=== PATIENT | male | born 1945 | race Caucasian/White ===

== ENCOUNTER 2016-09-16 13:43 | Emergency (ER) | payer OTHER ==
[2016-09-16 13:58] VITALS: BP 134/80; PULSE 71; TEMP 98; BMI 25.5
[2016-09-16] MEDS ORDERED: KETOROLAC TROMETHAMINE 60 MG/2 ML VIAL IM ONE (14:45)
--- NOTE | 2016-09-16 14:52 | PDOC ---
History of Present Illness - General Chief Complaint: Back Pain Stated Complaint: LOWER BACK PAIN, RECTAL BLEED Time Seen by Provider: 09/16/16 14:20 - History of Present Illness Initial Comments: 09/16/16 14:48 CHIEF COMPLAINT: back pain HISTORY OF PRESENT ILLNESS: 71 yo M with hx of HTN [facility] [place] with back pain x 2 months. Patient reports that he does a lot of work in construction and still goes to the gym "every day because I've been doing it my whole life." He denies any loss of sensation to legs or loss of bowel or bladder function. He reports that the pain is in the lower part of his back "close to the bottom" and radiates down his right leg. No recent travel or sick contacts. PAST MEDICAL HISTORY: Denies past medical history FAMILY HISTORY: Denies SOCIAL HISTORY: Denies tobacco, alcohol, illicit drug use. SURGICAL HISTORY: Denies ALLERGIES: No known drug allergies REVIEW OF SYSTEMS General/Constitutional: Denies fever or chills. Denies weakness, weight change. HEENT: Denies change in vision. Denies ear pain or discharge. Denies sore throat. Cardiovascular: Denies chest pain or shortness of breath. Respiratory: Denies cough, wheezing, or hemoptysis. Gastrointestinal: Denies nausea, vomiting, diarrhea or constipation. Denies rectal bleeding. Genitourinary: Denies dysuria, frequency, or change in urination. Musculoskeletal: Denies joint or muscle swelling or pain. Denies neck or back pain. Skin and breasts: Denies rash or easy bruising. Neurologic: Denies loss of sensation. Denies headache, vertigo, loss of consciousness, or loss of sensation. PHYSICAL EXAM General Appearance: Well-appearing, appropriately dressed. No apparent distress , no intoxication. HEENT: EOMI, PERRLA, normal ENT inspection, normal voice, TMs normal, pharynx normal. No conjunctival pallor. No photophobia, scleral icterus. Neck: Supple. Trachea midline. No tenderness, rigidity, carotid bruit, stridor , lymphadenopathy, or thyromegaly. Respiratory/Chest: Lungs CTAB. Cardiovascular: RRR. S1, S2. No JVD, murmur, bradycardia, tachycardia. Vascular Pulses: Dorsalis-Pedis (R): 2+, Dorsalis-Pedis (L): 2+ Gastrointestinal/Abdominal: Normal bowel sounds. Abdomen soft, non-distended. No tenderness or rebound tenderness. No organomegaly, pulsatile mass, guarding , hernia, hepatomegaly, splenomegaly. Lymphatic: No adenopathy, tenderness. Musculoskeletal/Extremities: Bilateral pain to lumbar spine. No loss of sensation to extremities, no loss of bowel or bladder function. Normal inspection. FROM of all extremities, normal capillary refill. Pelvis Stable. No CVA tenderness. No tenderness to extremities, pedal edema, swelling, erythema or deformity. Integumentary: Appropriate color, dry, warm. No cyanosis, erythema, jaundice or rash Neurologic: bacteriologist food II-XII intact. Fully oriented, alert. Appropriate mood/affect. Motor strength 5/5. No appreciable EOM palsy, facial droop or sensory deficit. 09/16/16 14:54 Past History - Past Medical History Allergies/Adverse Reactions: Allergies Allergy/AdvReac Type Severity Reaction Status Date / Time No Known Allergies Allergy Verified 09/16/16 13:52 Home Medications: Ambulatory Orders Cyclobenzaprine HCl 7.5 mg PO HS PRN #4 tablet 09/16/16 Naproxen 250 mg PO BID #10 tablet 09/16/16 Olmesartan/Hydrochlorothiazide [Benicar Hct 20-12.5MG Tab] 1 tab PO DAILY Simvastatin 10 mg PO 09/16/16 HTN: Yes Hypercholesterolemia: Yes - Psycho/Social/Smoking Cessation Hx Anxiety: No Suicidal Ideation: No Smoking History: Never smoked Have you smoked in the past 12 months: No Information on smoking cessation initiated: No Hx Alcohol Use: No Drug/Substance Use Hx: No Substance Use Type: None *Physical Exam - Vital Signs Last Vital Signs Temp Pulse Resp BP Pulse Ox 98.0 F 71 18 134/80 100 09/16/16 13:55 09/16/16 13:55 09/16/16 13:55 09/16/16 13:55 09/16/16 13:55 Medical Decision Making - Medical Decision Making 09/16/16 14:56 71 yo M with hx of HTN presents to [facility] [place] with back pain x 2 months. -30 mg IM Toradol Will rx naproxen and cyclobenzaprine with close f/u with ortho. Advised patient to take medication as prescribed and f/u with ortho by the end of the week. Patient and verbalized understanding and agree to plan. *DC/Admit/Observation/Transfer Diagnosis at time of Disposition: Sacral back pain - Discharge Dispostion Disposition: HOME Condition at time of disposition: Stable Admit: No - Prescriptions Prescriptions: Cyclobenzaprine HCl 7.5 mg PO HS PRN #4 tablet PRN Reason: Back Pain Naproxen 250 mg PO BID #10 tablet - Referrals Referrals: Jesus Sim MD [Primary Care Provider] - Moi Downing MD [Staff Physician] - - Patient Instructions Printed Discharge Instructions: DI for Low Back Pain Additional Instructions: Please take medication as prescribed; as discussed do not drive or operate machinery while taking cyclobenzaprine. Please follow up with orthopedics by the end of the week for a possible MRI and/or physical therapy. If you experience any numbness, loss of sensation, or tingling to your legs, or you develop any loss of bowel or bladder function, or you develop any new or worsening symptoms, please return to the ER.
[2016-09-16] MEDS ORDERED: KETOROLAC TROMETHAMINE 30 MG/1 ML VIAL ONE (15:18)
== END 2016-09-16 15:24 | disposition home or self-care (01) ==
LOC: JER 13:43 → JERFT 13:43
DX: M54.5 Low back pain (principal); I10 Essential (primary) hypertension; E78.00 Pure hypercholesterolemia, unspecified
CPT/HCPCS: 99281-25

== ENCOUNTER 2018-02-12 16:04 | Emergency (ER) | payer OTHER ==
[2018-02-12 16:16] VITALS: BP 118/69; PULSE 73; TEMP 98; BMI 25.8
--- NOTE | 2018-02-12 16:16 | PDOC ---
Rapid Medical Evaluation Chief Complaint: Back Pain Time Seen by Provider: 02/12/18 16:12 Medical Evaluation: Allergies Allergy/AdvReac Type Severity Reaction Status Date / Time No Known Allergies Allergy Verified 09/16/16 13:52 02/12/18 16:15 I have performed a brief in person evaluation of this patient. The patient presents with a CC of: back pain PE: Skin: clear Lungs: Clear Heart: RRR Abd: No pain upon palpation MS: Moves all extremities without difficulty. Pt has pain upon palpation to the muscles adjacent to the lumbar spine. 5/5 strength in LE groups. Psych: Age appropriate. The patient will proceed to [facility] for further evaluation. Discharge Disposition - Diagnosis Back pain Qualifiers: Back pain location: low back pain Chronicity: acute Back pain laterality: right Sciatica presence: with sciatica Sciatica laterality: sciatica of right side Qualified Code(s): M54.41 - Lumbago with sciatica, right side - Referrals Referrals: Jesus Sim MD [Primary Care Provider] - - Patient Instructions - Post Discharge Activity
[2018-02-12] MEDS ORDERED: KETOROLAC TROMETHAMINE 30 MG/1 ML VIAL IM ONE (16:53)
[2018-02-12] MEDS ORDERED: KETOROLAC TROMETHAMINE 30 MG/1 ML VIAL ONE (16:56)
--- NOTE | 2018-02-12 17:00 | PDOC ---
History of Present Illness - General Chief Complaint: Back Pain Stated Complaint: BACK/RT LEG PAIN Time Seen by Provider: 02/12/18 16:12 History Source: Patient Exam Limitations: No Limitations - History of Present Illness Initial Comments: 02/12/18 16:54 72 yr male with history of low back pain radiates down right leg for 2 days no abd pain no urinary discomfort or dysfunction. Pt did not take any meds [employer]. Pt has had in the past sciatica, feels the same today. no fever no chills no recent URI. Pt is ambulating with limp. Severity: reports: mild Pain Location: reports: back Past History - Past Medical History Allergies/Adverse Reactions: Allergies Allergy/AdvReac Type Severity Reaction Status Date / Time No Known Allergies Allergy Verified 09/16/16 13:52 Home Medications: Ambulatory Orders Olmesartan/Hydrochlorothiazide [Benicar Hct 20-12.5MG Tab] 1 tab PO DAILY Simvastatin 10 mg PO 09/16/16 Cyclobenzaprine HCl [Flexeril 10 mg] 10 mg PO TID PRN #21 tablet 02/12/18 Naproxen [Naprosyn -] 500 mg PO BID #14 tablet 02/12/18 COPD: No HTN: Yes Hypercholesterolemia: Yes Other medical history: low back pain - Immunization History Immunization Up to Date: No - Suicide/Smoking/Psychosocial Hx Smoking History: Never smoked Have you smoked in the past 12 months: No Information on smoking cessation initiated: No Hx Alcohol Use: No Drug/Substance Use Hx: No Substance Use Type: None Trauma Specific PMHX - Complaint Specific PMHX Arthritis: No Back Injury: No Neck Injury: No Hx Sacro Iliac Joint Dysfunction: No Review of Systems - Review of Systems Able to Perform ROS?: Yes Is the patient limited Hungarian proficient: No Constitutional: No: Symptoms Reported HEENTM: No: Symptoms Reported Respiratory: No: Symptoms reported Cardiac (ROS): No: Symptoms Reported ABD/GI: No: Symptoms Reported : No: Symptoms Reported Musculoskeletal: Yes: Symptoms Reported, Back Pain *Physical Exam - Vital Signs Last Vital Signs Temp Pulse Resp BP Pulse Ox 98.0 F 73 16 118/69 100 02/12/18 16:13 02/12/18 16:13 02/12/18 16:13 02/12/18 16:13 02/12/18 16:13 - Physical Exam General Appearance: Yes: Nourished, Appropriately Dressed HEENT: positive: EOMI, DEWAYNE, TMs Normal, Pharynx Normal Neck: positive: Supple Respiratory/Chest: positive: Lungs Clear, Normal Breath Sounds Cardiovascular: positive: Regular Rhythm, Regular Rate Lymphatic: negative: Adenopathy Musculoskeletal: positive: Normal Inspection, Other (ttp right lower paraspinal soft tissue to buttock, neg hip pain or tenderness). negative: CVA Tenderness, CVA Tenderness (R), CVA Tenderness (L), Muscle Spasm, Vertebral Tenderness Extremity: positive: Normal Capillary Refill, Normal Inspection, Normal Range of Motion, Other (SLR right side positive at 45 degrees ) Integumentary: positive: Normal Color, Dry, Warm Neurologic: positive: Fully Oriented, Alert, Normal Mood/Affect, Normal Response , Motor Strength 5/5 ED Treatment Course - RADIOLOGY Radiology Studies Ordered: Category Date Time Status SPINE-LUMBAR SACRAL [RAD] Stat Radiology 02/12/18 16:53 Ordered Medical Decision Making - Medical Decision Making 02/12/18 17:01 cc: low back pain radiates to the right leg no abd pain neg saddle anesthesia neg numbness or tingling , neg urinary symptoms spine xray and toradol pt has apt tomorrow with , told him to come to ER and get xray pt and his agree with the plan of care 02/12/18 17:38 pt states he feels better after the toradol, ambulating freely steady gait. *DC/Admit/Observation/Transfer Diagnosis at time of Disposition: Back pain Qualifiers: Back pain location: low back pain Chronicity: acute Back pain laterality: right Sciatica presence: with sciatica Sciatica laterality: sciatica of right side Qualified Code(s): M54.41 - Lumbago with sciatica, right side Sciatica Qualifiers: Laterality: right Qualified Code(s): M54.31 - Sciatica, right side - Discharge Dispostion Disposition: HOME Condition at time of disposition: Improved - Prescriptions Prescriptions: Cyclobenzaprine HCl [Flexeril 10 mg] 10 mg PO TID PRN #21 tablet PRN Reason: Muscle Spasms Naproxen [Naprosyn -] 500 mg PO BID #14 tablet - Referrals Referrals: Schirripa,Jesus, MD [Primary Care Provider] - - Patient Instructions Additional Instructions: take the medication as prescribed, you can take the flexeril (muscle relaxant) when you get home before bed apply heating pad or warm compresses to the lower back on the right side avoid any heavy lifting or bending follow with tomorrow as planned Return to ER for any worsening pain or concerning symptoms, unable to walk, unable to hold urine or bowel in , severe pain - Post Discharge Activity
== END 2018-02-12 17:43 | disposition home or self-care (01) ==
LOC: JERFT 16:04
PROC: 3E0233Z Introduction of Anti-inflammatory into Muscle, Percutaneous Approach (ICD-10-PCS; principal; 2018-02-12)
DX: M54.41 Lumbago with sciatica, right side (principal); I10 Essential (primary) hypertension; E78.00 Pure hypercholesterolemia, unspecified
CPT/HCPCS: 72100-TC-FY; 99281-25

== ENCOUNTER 2018-10-08 14:27 | Emergency (ER) | payer OTHER ==
[2018-10-08 14:43] VITALS: TEMP 98.4; BMI 25.8
[2018-10-08] MEDS ORDERED: MECLIZINE HCL 25 MG TABLET (FP) PO ONE (15:00)
[2018-10-08] MEDS ORDERED: SODIUM CHLORIDE 1,000 ML IV STA (15:00)
[2018-10-08] MEDS ORDERED: MECLIZINE HCL 25 MG TABLET (FP) ONE (15:03)
[2018-10-08 15:31] LABS: BASO % 0.4 % (0-2.0); EOS % 1.2 % (0-4.5); HEMATOCRIT 42.8 % (35.4-49); HEMOGLOBIN 14.3 GM/dl (11.7-16.9); LYMPH % 26.1 % (8-40); MCH 31.5 pg (25.7-33.7); MCHC 33.4 g/dl (32.0-35.9); MEAN CELL VOLUME 94.3 fl (80-96); MEAN PLT VOLUME 8.5 fl (7.5-11.1); MONO % 7.5 % (3.8-10.2); NEUT % 64.8 % (42.8-82.8); PLATELET COUNT 253 K/MM3 (134-434); RBC 4.54 M/mm3 (4.00-5.60); RDW 12.3 % (11.9-15.9); WHITE BLOOD COUNT 6.8 K/mm3 (4.0-10.8)
[2018-10-08 15:39] LABS: ALBUMIN 4.3 g/dl (3.4-5.0); BILIRUBIN,TOTAL 0.8 mg/dl (0.2-1); CALCIUM 9.7 mg/dl (8.5-10); CREATININE 1.2 mg/dl (0.55-1.3); TOT PROT 7.5 g/dl (6.4-8.2)
[2018-10-08 16:57] VITALS: BP 142/80; PULSE 76
--- NOTE | 2018-10-08 16:58 | PDOC ---
Documentation entered by Monika Jimenez SCRIBE, acting as scribe for Wally Khoury MD. Wally Khoury MD: This documentation has been prepared by the Tony white Collisia, SCRIBE, under my direction and personally reviewed by me in its entirety. I confirm that the documentation accurately reflects all work, treatment, procedures, and medical decision making performed by me. History of Present Illness - General Chief Complaint: Lightheaded Stated Complaint: DIZZY History Source: Patient Exam Limitations: No Limitations - History of Present Illness Initial Comments: 10/08/18 15:52 The patient is a 73 year old male with a significant past medical history of hypertension and hypercholesterolemia who presents to the emergency department with episodes of vertigo for 1 week. The patient reports that he was in [place] last week with his onset of symptoms. He describes his symptoms as if the room is spinning. The patient states that he went to the ED on vacation and was prescribed meclizine by which he finished 3 days ago. The patient states that the medication helped his symptoms slightly but he still feels dizzy. The patient states that he followed up with his Doctor (Dr. Lomax) by which he was advised to come to the ED for a head CT for further evaluation. The patient denies any fever, chills, nausea, vomiting, diarrhea, constipation or urinary symptoms. The patient denies any chest pain, shortness of breath, headache. He denies any other complaints. NIH Stroke Scale - Last Known Well Date/Time & Onset Date Last Known Well: 10/01/18 - Initial Evaluation Level of consciousness: Alert Ask patient the month and their age: Answers both correctly Ask patient to open & close eyes; make fist and let go: Obeys both correctly Best gaze (horizontal eye movement): Normal Visual field testing: No visual field loss Facial paresis (Show teeth/raise eyebrows/close eyes tight): Normal symmetrical movement Motor Function: Left Arm: Normal Motor Function: Right Arm: Normal (extends arm 90 (or 45) degrees for 10 seconds without drift Motor Function: Left Leg: Normal (extends leg 30 degrees for 5 seconds without drift) Motor Function: Right Leg: Normal (extends leg 30 degrees for 5 seconds without drift) Limb Ataxia: No ataxia Sensory(Use pinprick test arms,legs,trunk,face/side to side): Normal Best language (Describe picture, name items, read sentences): No Aphasia Dysarthria (read several words): Normal articulation Extinction and Inattention: No abnormality - Total Score NIH Stroke Scale Score: 0 Past History - Past Medical History Allergies/Adverse Reactions: Allergies Allergy/AdvReac Type Severity Reaction Status Date / Time No Known Allergies Allergy Verified 10/08/18 14:29 Home Medications: Ambulatory Orders Olmesartan/Hydrochlorothiazide [Benicar Hct 20-12.5MG Tab] 1 tab PO DAILY Meclizine HCl 25 mg PO Q6H PRN #15 tablet 10/08/18 Meclizine HCl [Antivert -] 25 mg PO TID PRN 10/08/18 COPD: No HTN: Yes Hypercholesterolemia: Yes - Immunization History Immunization Up to Date: No - Suicide/Smoking/Psychosocial Hx Smoking History: Never smoked Have you smoked in the past 12 months: No Hx Alcohol Use: No Drug/Substance Use Hx: No Substance Use Type: None Review of Systems - Review of Systems Able to Perform ROS?: Yes Comments:: 10/08/18 15:52 GENERAL/CONSTITUTIONAL: No fever or chills. No weakness. HEAD, EYES, EARS, NOSE AND THROAT: No change in vision. No ear pain or discharge. No sore throat. CARDIOVASCULAR: No chest pain or shortness of breath. RESPIRATORY: No cough, wheezing, or hemoptysis. GASTROINTESTINAL: No nausea, vomiting, diarrhea or constipation. GENITOURINARY: No dysuria, frequency, or change in urination. MUSCULOSKELETAL: No joint or muscle swelling or pain. No neck or back pain. SKIN: No rash NEUROLOGIC: (+)vertigo.No headache, loss of consciousness, or change in strength /sensation. ENDOCRINE: No increased thirst. No abnormal weight change. HEMATOLOGIC/LYMPHATIC: No anemia, easy bleeding, or history of blood clots. ALLERGIC/IMMUNOLOGIC: No hives or skin allergy. *Physical Exam - Vital Signs Last Vital Signs Temp Pulse Resp BP Pulse Ox 98.4 F 79 16 138/83 98 10/08/18 14:29 10/08/18 14:29 10/08/18 14:29 10/08/18 14:29 10/08/18 14:29 - Physical Exam Comments: 10/08/18 15:52 GENERAL: Awake, alert, and fully oriented, in no acute distress HEAD: No signs of trauma EYES: PERRLA, EOMI, sclera anicteric, conjunctiva clear ENT: Auricles normal inspection, hearing grossly normal, nares patent, oropharynx clear without exudates. Moist mucosa NECK: Normal ROM, supple, no lymphadenopathy, JVD, or masses LUNGS: Breath sounds equal, clear to auscultation bilaterally. No wheezes, and no crackles HEART: Regular rate and rhythm, normal S1 and S2, no murmurs, rubs or gallops ABDOMEN: Soft, nontender, normoactive bowel sounds. No guarding, no rebound. No masses EXTREMITIES: Normal range of motion, no edema. No clubbing or cyanosis. No cords, erythema, or tenderness NEUROLOGICAL: (+) [id number] maneuver on the right. Cranial nerves II through XII intact. Normal speech, normal gait. Rapid alternate normal. Heel to jefferson normal. 5/5 strength in upper and lower extremity. SKIN: Warm, Dry, normal turgor, no rashes or lesions noted. Heart Score/ECG Review #1 ECG reviewed & interpreted by me at: 15:30 10/08/18 15:26 NSR 65, no std/troy, T wave flat III, nonspecific intraventricular conduction delay, QRS 118 msec, QTC 424 msec ED Treatment Course - LABORATORY CBC & Chemistry Diagram: 10/08/18 15:10 10/08/18 15:10 - RADIOLOGY Radiology Studies Ordered: Category Date Time Status HEAD CT WITHOUT CONTRAST [CT] Stat CT Scan 10/08/18 15:00 Ordered - Medications Given in the ED: ED Medications Discontinued Medications Generic Name Dose Route Start Last Admin Trade Name Freq PRN Reason Stop Dose Admin Meclizine HCl 50 mg 10/08/18 15:00 10/08/18 15:05 Antivert - PO 10/08/18 15:01 50 mg ONCE ONE Administration Medical Decision Making - Medical Decision Making 10/08/18 15:28 A portion of this note was documented by scribe services under my direction. I have reviewed the details of the note, within reason, and agree with the documentation with the following case summary and management plan written by me. Patient treated in the ED. Nursing notes are reviewed and incorporated into the medical decision-making. Vital signs reviewed. Peripheral IV access obtained by the nurse, laboratory studies are drawn and sent, reviewed and interpreted by myself. Vital Signs Temp Pulse Resp BP Pulse Ox 98.4 F 79 16 138/83 98 10/08/18 14:29 10/08/18 14:29 10/08/18 14:29 10/08/18 14:29 10/08/18 14:29 73-year-old male with past medical history of hypertension, hyperlipidemia presents with vertigo. Last week, the patient was occasioning in [place] when he felt a sudden onset of vertigo. The patient is in the emergency department at that time was diagnosed with peripheral vertigo given a prescription 10/08/18 16:53 CBC, BMP 10/08/18 15:10 10/08/18 15:10 CMP Sodium 136 mmol/L (136-145) 10/08/18 15:10 Potassium 4.0 mmol/L (3.5-5.1) 10/08/18 15:10 Chloride 102 mmol/L (98-107) 10/08/18 15:10 Carbon Dioxide 26 mmol/L (21-32) 10/08/18 15:10 Anion Gap 8 MMOL/L (8-16) 10/08/18 15:10 BUN 24.0 mg/dl (7-18) H 10/08/18 15:10 Creatinine 1.2 mg/dl (0.55-1.3) 10/08/18 15:10 Est GFR (CKD-EPI)AfAm 68.15 10/08/18 15:10 Est GFR (CKD-EPI)NonAf 58.80 10/08/18 15:10 Random Glucose 160 mg/dl (74-106) H 10/08/18 15:10 Calcium 9.7 mg/dl (8.5-10) 10/08/18 15:10 Total Bilirubin 0.8 mg/dl (0.2-1) 10/08/18 15:10 AST 36 U/L (15-37) 10/08/18 15:10 ALT 44 U/L (13-61) 10/08/18 15:10 Alkaline Phosphatase 54 U/L (45-117) 10/08/18 15:10 Troponin I < 0.03 ng/ml (0.00-0.05) 10/08/18 15:10 Total Protein 7.5 g/dl (6.4-8.2) 10/08/18 15:10 Albumin 4.3 g/dl (3.4-5.0) 10/08/18 15:[address] reviewed. No acute findings. The patient reports feeling completely better without symptoms. I suspect the patient likely has peripheral vertigo. I advised the patient that head CT is negative though if he continues to have persistence of symptoms for next several days that he should speak to his doctor regards for potential MRI of the brain. At this time, which the patient feels well at this time. The patient' s will bring the patient home. Return precautions given. Patient verbalizes understanding agrees with plan. I discussed the physical exam findings, ancillary test results and final diagnoses with the patient. I answered all of the patient's questions. The patient was satisfied with the care received and felt comfortable with the discharge plan and treatment plan. The patient will call their primary care physician within 24 hours to arrange follow-up and will return to the Emergency Department with any new, persistant or worsening symptoms. *DC/Admit/Observation/Transfer Diagnosis at time of Disposition: Peripheral vertigo Qualifiers: Laterality: right Qualified Code(s): H81.391 - Other peripheral vertigo, right ear - Discharge Dispostion Disposition: HOME Condition at time of disposition: Good Decision to Admit order: No - Prescriptions Prescriptions: Meclizine HCl 25 mg PO Q6H PRN #15 tablet PRN Reason: Vertigo - Referrals Referrals: Jesus Sim MD [Primary Care Provider] - - Patient Instructions Printed Discharge Instructions: DI for Benign Paroxysmal Positional Vertigo Additional Instructions: The CAT scan the head and the blood work was unremarkable. However, I suspect that this was peripheral vertigo. Please check plenty of fluids. If dizziness occurs, take one tablet of meclizine every 6 hours as needed. If he noticed in the next several days that she have persistence of dizziness despite taking medications, you may possibly need an MRI of the brain. Please contact your doctor and make a follow-up appointment or return to the ER. - Post Discharge Activity
--- NOTE | 2018-10-09 11:26 | EKG ---
Test Reason : Blood Pressure : / mmHG Vent. Rate : 065 BPM Atrial Rate : 065 BPM P-R Int : 164 ms QRS Dur : 118 ms QT Int : 408 ms P-R-T Axes : 054 -09 022 degrees QTc Int : 424 ms NORMAL SINUS RHYTHM NON-SPECIFIC INTRA-VENTRICULAR CONDUCTION DELAY WHEN COMPARED WITH ECG OF 29-APR-2008 17:38, NO SIGNIFICANT CHANGE WAS FOUND Confirmed by CARLEY JORDAN MD ([id number]) on 10/09/2018 11:26:13 AM Referred By: DR VARGAS Confirmed By:CARLEY JORDAN MD
== END 2018-10-08 17:06 | disposition home or self-care (01) ==
LOC: FER 14:27
PROC: 3E0337Z Introduction of Electrolytic and Water Balance Substance into Peripheral Vein, Percutaneous Approach (ICD-10-PCS; principal; 2018-10-08)
DX: H81.391 Other peripheral vertigo, right ear (principal); I10 Essential (primary) hypertension; E78.00 Pure hypercholesterolemia, unspecified
CPT/HCPCS: 36415; 70450-TC; 80053; 84484; 85025; 93005; 99284-25; J7030

== ENCOUNTER 2020-01-25 05:31 | Day surgery (SDC) | payer OTHER ==
[2020-01-20 13:56] VITALS: BMI 26.3
--- OUTSIDE RECORDS SUMMARY | 2020-01-25 05:35 | XMS ---
:1945 [facility] Support Name Relationship Address Phone RE, RETIRED Unavailable Unavailable Unavailable RE Unavailable Unavailable Unavailable DEEPA SARAH [address] [place] [address] Re-disclosure Warning The records that you are about to access may contain information from federally- assisted alcohol or drug abuse programs. If such information is present, then the following federally mandated warning applies: This information has been disclosed to you from records protected by federal confidentiality rules (42 CFR part 2). The federal rules prohibit you from making any further disclosure of this information unless further disclosure is expressly permitted by the written consent of the person to whom it pertains or as otherwise permitted by 42 CFR part 2. A general authorization for the release of medical or other information is NOT sufficient for this purpose. The Federal rules restrict any use of the information to criminally investigate or prosecute any alcohol or drug abuse patient.The records that you are about to access may contain highly sensitive health information, the redisclosure of which is protected by Article 27-F of the [facility] Public Health law. If you continue you may haveaccess to information: Regarding HIV / AIDS; Provided by facilities licensed or operated by the [facility] Office of Mental Health; or Provided by the [facility] Office for People With Developmental Disabilities. If such information is present, then the following [facility] mandated warning applies: This information has been disclosed to you from confidential records which are protected by state law. State law prohibits you from making any further disclosure of this information without the specific written consent of the person to whom it pertains, or as otherwise permitted by law. Any unauthorized further disclosure in violation of state law may result in a fine or half-way sentence or both. A general authorization for the release of medical or other information is NOT sufficient authorization for further disclosure. Insurance Providers Payer name Policy type Policy ID Covered Covered libertarian's Policy P erica / Coverage libertarian ID relationship to [facility] orm[facility] type cox [place] [id number] SP [id number] HEALTHCARE (MEDICARE) [place] [id number] SP [id number] HEALTHCARE (MEDICARE) Results ID Date Data Source [id number] 01/20/2020 10:32:00 AM EDT [facility] Name Value Range Interpretation Description Data Sup porting Code Source(s) Document(s ) SARS [facility] coronavirus 2 RNA This lab was ordered by [facility] and reported by [facility]. ID Date Data Source [id number] 11/02/2019 02:53:00 PM EDT [facility] Name Value Range Interpretation Description Data Sup porting Code Source(s) Document(s ) SARS-CoV-2 [facility] (COVID-19) RNA [Presence] in Respiratory specimen by GINO with probe detection This lab was ordered by [id number] and repo rted by [employer] ID Date Data Source [id number] 10/22/2019 05:37:00 PM EDT [facility] Name Value Range Interpretation Description Data Sup porting Code Source(s) Document(s ) SARS [facility] coronavirus 2 RNA [Presence] in Nasopharynx by GINO with non-probe detection This lab was ordered by [id number] and repo rted by [employer] ID Date Data Source [id number] 06/26/2019 06:45:00 PM EDT [facility] Name Value Range Interpretation Code Description Data Eunice rce(s) Supporting Document(s ) 2019-NCOV [facility] RNA PNL XXX GINO+PROBE This lab was ordered by [facility] and reported by [facility]. Procedure
[2020-01-25 10:17] VITALS: TEMP 97.8
[2020-01-25 10:47] VITALS: BP 112/68; PULSE 61
== END 2020-01-25 10:38 | disposition home or self-care (01) ==
LOC: JASU-ENDO 05:31
PROVIDERS: ATTEND Internal Medicine Gastroenterology
PROC: 0DJD8ZZ Inspection of Lower Intestinal Tract, Via Natural or Artificial Opening Endoscopic (ICD-10-PCS; principal; 2020-01-25 10:00)
DX: Z12.11 Encounter for screening for malignant neoplasm of colon (principal); K57.30 Diverticulosis of large intestine without perforation or abscess without bleeding; K64.8 Other hemorrhoids; Z86.010 Personal history of colon polyps